=== PATIENT | female | born 1970 | race Caucasian/White ===

== ENCOUNTER → 2021-08-02 | Outpatient (CLI) | payer OTHER ==
[~2021-08-02] MED LIST: FELDENE10 MG PO; FLEXERIL 10 MG10 MG PO; IBUPROFEN800 MG PO; NORFLEX 100 MG100 MG PO; PREDNISONE 50 M50 MG PO; Voltaren Gel 1 % TOP
== END ==
LOC: KOH-I 15:45
DX: M51.36 Other intervertebral disc degeneration, lumbar region (principal)
CPT/HCPCS: 73502; 73562

== ENCOUNTER 2022-08-18 13:39 | Emergency (ER) | payer OTHER ==
[2022-08-18 15:49] LABS: HEMOGLOBIN 15.4 gm/dl (12.3-15.3); RED BLOOD COUNT 5.12 M/UL (4.00-5.10); WHITE BLOOD COUNT 12.6 K/UL (4.5-11.0)
[2022-08-18 16:13] LABS: BUN/CREATININE RATIO 12 (0-10)
[2022-08-18] MEDS ORDERED: BACTRIM DS TAB1 EACH PO (20:50)
[2022-08-18] MEDS ORDERED: ENDOCET 5-3251 EACH PO (20:53)
== END 2022-08-18 21:20 | disposition home or self-care (01) ==
LOC: ER1 13:39
PROVIDERS: Physician Assistant
DX: N75.0 Cyst of Bartholin's gland (principal); N39.0 Urinary tract infection, site not specified; I10 Essential (primary) hypertension; F17.210 Nicotine dependence, cigarettes, uncomplicated
CPT/HCPCS: 76830; 80053; 81001; 84703; 85025; 96374; 96375; 96376; 99284; J0696; J2270; J2405; Q9967